=== PATIENT | male | born 1950 | race Caucasian/White ===

== ENCOUNTER 2017-02-09 11:32 | Emergency (ER) | payer OTHER ==
[~2017-02-09] VITALS: Ht 180.3 cm; Wt 94.1 kg
[~2017-02-09 11:32] MED LIST: ASCORBIC ACID500 M3 PO; ASPIR-LOW81 MG PO; ASPIRIN325 MG PO; BUSPAR5 MG PO; BUSPIRONE HCL10 MG PO; DEXTROSE 50%50 ML IV; DILANTIN100 MG PO; DUONEB 2.5-0.5 M3 ML AEROSOL; FOLIC ACID1 MG PO; FUROSEMIDE20 MG PO; GLUCAGEN1 MG IM/SC; HEPARIN SO5000 UNITS SC; LAMICTAL150 M1 PO; LAMOTRIGINE150 MG PO; LAMOTRIGINE200 MG PO; LEXAPRO20 MG PO; LORAZEPAM0.5 MG PO; LORAZEPAM2 MG/1 M1 IV; METHOTREXATE2.5 MG PO; METOPROLOL SUCC25 MG PO; NITROSTAT0.4 MG SL; NOVOLOG PE100 UNITS/ SC; ONDANSETRON4 MG/2 ML IV; PANTOPRAZOLE SO40 MG PO; PRAVASTATIN SOD40 MG PO; PREDNISONE20 MG PO; PREDNISONE5 MG PO; PROMETHAZINE HC25 M1 PO; PROTONIX40 MG PO; RESTASIS 01 DROP/0.4 BOTH EYES; SALINE FLUSH 5 M5 ML IV; SENNA-TIME S T1 EACH PO; SERTRALINE HCL100 MG PO; SERTRALINE HCL25 MG PO; SERTRALINE HCL50 MG PO; SIMVASTATIN20 MG PO; TAMSULOSIN HCL0.4 MG PO; VANCOMYCIN HCL1 GM IV; VITAMIN B-6100 MG PO; VITAMIN D250000 UNIT PO; ZOCOR20 MG PO; ZOLOFT100 MG PO; ZOLOFT50 MG PO; ZOSYN 3.373.375 GM/5 IV; ZOSYN 3.3753.375 GM IV
[2017-02-09 12:59] LABS: HEMATOCRIT 40.9 % (38.0-50.0); HEMOGLOBIN 14.1 G/DL (12.5-16.6); MCH 29.9 PG (29.0-34.0); MCHC 34.5 G/DL (30.0-36.0); MCV 86.7 FL (86-99); PLATELET COUNT 162 K/uL (156-360); RBC DIS.WIDTH-CV 12.8 % (11.8-14.6); RBC DIS.WIDTH-SD 40.4 % (39-53); RED BLOOD COUNT 4.72 M/uL (4.00-5.50); WHITE BLOOD COUNT 5.9 K/uL (4.1-10.2)
[2017-02-09 13:09] LABS: CHLORIDE 105 mEq/L (99-109); POTASSIUM 4.1 mEq/L (3.7-5.4); SODIUM 135 mEq/L (136-147)
[2017-02-09 13:11] LABS: GLUCOSE 88 mg/dL (70-99)
[2017-02-09 13:15] LABS: CREATININE 1.1 mg/dL (0.6-1.3); GFR ESTIMATE (CALCULATED) > 59 mL/min/ (58.99-99999)
[2017-02-09 13:16] LABS: UREA NITROGEN (BUN) 16 mg/dL (9-23)
[2017-02-09 14:51] LABS: APPEARANCE CLEAR ((CLEAR)); BILIRUBIN NEGATIVE; BLOOD NEGATIVE; COLOR YELLOW ((YELLOW)); GLUCOSE (STRIP) NEGATIVE; KETONES 5; LEUKOCYTES NEGATIVE; NITRITE NEGATIVE; PROTEIN (STRIP) NEGATIVE; SPECIFIC GRAVITY 1.019 (1.000-1.030); UCUL ADDED? NO
[2017-02-09] MEDS ORDERED: FLOMAX0.4 MG PO (16:15)
[2017-02-09 16:34] VITALS: BP 123/82
== END 2017-02-09 16:35 | disposition home or self-care (01) ==
LOC: EME 11:32
DX: R33.9 Retention of urine, unspecified (principal); I10 Essential (primary) hypertension; I25.2 Old myocardial infarction; F41.9 Anxiety disorder, unspecified; R56.9 Unspecified convulsions; M48.00 Spinal stenosis, site unspecified; Z87.891 Personal history of nicotine dependence
CPT/HCPCS: 71020; 80048; 81003; 85027; 93005; 99281; 99284

== ENCOUNTER 2017-06-10 19:36 | Inpatient (IN) | payer OTHER ==
[~2017-06-10] VITALS: Ht 180.3 cm; Wt 85.3 kg
[~2017-06-10 19:36] MED LIST changes: +FLOMAX0.4 MG PO
[2017-06-10 22:12] LABS: HEMATOCRIT 37.7 % (38.0-50.0); HEMOGLOBIN 13.2 G/DL (12.5-16.6); MCH 30.2 PG (29.0-34.0); MCV 86.3 FL (86-99); PLATELET COUNT 158 K/uL (156-360); RBC DIS.WIDTH-CV 12.5 % (11.8-14.6); RBC DIS.WIDTH-SD 39.2 % (39-53); RED BLOOD COUNT 4.37 M/uL (4.00-5.50); WHITE BLOOD COUNT 8.5 K/uL (4.1-10.2)
[2017-06-10] MEDS ORDERED: KEPPRA500 MG PO (22:15)
[2017-06-10] MEDS ORDERED: DIOVAN80 MG PO (22:16)
[2017-06-10] MEDS ORDERED: COREG6.25 M1 PO (22:18)
[2017-06-10] MEDS ORDERED: METAMUCIL0.4 GM PO ×2 (22:21→23:59)
[2017-06-10 22:25] LABS: ALBUMIN 4.1 g/dL (3.2-4.8); CHLORIDE 106 mEq/L (99-109); POTASSIUM 4.1 mEq/L (3.7-5.4); SODIUM 140 mEq/L (136-147)
[2017-06-10 22:27] LABS: GLUCOSE 94 mg/dL (70-99); TOTAL PROTEIN 6.8 g/dL (6.4-8.3)
[2017-06-10 22:29] LABS: TOTAL BILIRUBIN 0.5 mg/dL (0.0-1.0)
[2017-06-10 22:31] LABS: ALKALINE PHOSPHATASE 96 IU/L (3-129); CREATININE 1.1 mg/dL (0.6-1.3); GFR ESTIMATE (CALCULATED) > 59 mL/min/ (58.99-99999)
[2017-06-10 22:32] LABS: UREA NITROGEN (BUN) 25 mg/dL (9-23)
[2017-06-10 22:33] LABS: AST (GOT) 15 IU/L (2-34)
[2017-06-10 22:34] LABS: ALT (GPT) 12 IU/L (3-49)
[2017-06-10] MEDS ORDERED: LORAZEPAM1 MG PO (23:37)
[2017-06-10] MEDS ORDERED: ATIVAN1 MG PO ×2 (23:43→23:45)
[2017-06-10] MEDS ORDERED: ESCITALOPRAM OX20 MG PO (23:46)
[2017-06-10] MEDS ORDERED: LAMOTRIGINE150 MG PO (23:46)
[2017-06-10] MEDS ORDERED: NITROGLYCERIN0.4 MG SL (23:47)
[2017-06-10] MEDS ORDERED: VALSARTAN80 MG PO (23:48)
[2017-06-10] MEDS ORDERED: CARVEDILOL6.25 MG PO (23:50)
[2017-06-11] MEDS ORDERED: LO-DOSE ASPIRIN81 M2 PO (00:02)
[2017-06-11] MEDS ORDERED: RESTASIS MULTI5.5 ML BOTH EYES (00:05)
[2017-06-11 00:49] LABS: APPEARANCE CLEAR ((CLEAR)); BILIRUBIN NEGATIVE; BLOOD NEGATIVE; COLOR YELLOW ((YELLOW)); GLUCOSE (STRIP) NEGATIVE; KETONES 5; LEUKOCYTES NEGATIVE; NITRITE NEGATIVE; PROTEIN (STRIP) 30; UCUL ADDED? NO
[2017-06-11 01:08] VITALS: BP 119/70
[2017-06-11 04:33] VITALS: BP 147/75
[2017-06-11 08:26] VITALS: BP 142/80
[2017-06-11 11:56] VITALS: BP 156/86
[2017-06-11 15:39] VITALS: BP 119/61
[2017-06-11 23:39] VITALS: BP 150/77
[2017-06-12 06:33] LABS: HEMATOCRIT 37.7 % (38.0-50.0); HEMOGLOBIN 12.5 G/DL (12.5-16.6); MCH 29.2 PG (29.0-34.0); MCHC 33.2 G/DL (30.0-36.0); MCV 88.1 FL (86-99); PLATELET COUNT 149 K/uL (156-360); RBC DIS.WIDTH-CV 12.5 % (11.8-14.6); RED BLOOD COUNT 4.28 M/uL (4.00-5.50); WHITE BLOOD COUNT 6.9 K/uL (4.1-10.2)
[2017-06-12 07:09] LABS: CHLORIDE 104 MEQ/L (99-109); GFR ESTIMATE (CALCULATED) > 59 mL/min/ (58.99-99999); GLUCOSE 87 mg/dL (70-99); POTASSIUM 4.2 MEQ/L (3.7-5.4); SODIUM 139 MEQ/L (136-147); UREA NITROGEN (BUN) 24 mg/dL (9-23)
[2017-06-12 08:03] VITALS: BP 130/81
[2017-06-12 15:11] VITALS: BP 125/71
[2017-06-13 00:36] VITALS: BP 130/68
[2017-06-13 08:26] VITALS: BP 111/61
[2017-06-13 15:39] VITALS: BP 118/69
[2017-06-13 23:25] VITALS: BP 121/68
[2017-06-14 08:13] VITALS: BP 172/95
[2017-06-14 10:00] VITALS: BP 119/79
[2017-06-14 16:08] VITALS: BP 129/89
[2017-06-14 23:31] VITALS: BP 124/60
[2017-06-15 08:10] VITALS: BP 122/85
[2017-06-15 16:40] VITALS: BP 113/60
[2017-06-15 23:29] VITALS: BP 125/58
[2017-06-16 09:34] VITALS: BP 141/92
[2017-06-16 16:35] VITALS: BP 140/62
[2017-06-16 23:24] VITALS: BP 130/78
[2017-06-17 06:20] LABS: HEMATOCRIT 36.7 % (38.0-50.0); HEMOGLOBIN 12.5 G/DL (12.5-16.6); MCH 29.6 PG (29.0-34.0); MCHC 34.1 G/DL (30.0-36.0); MCV 86.8 FL (86-99); PLATELET COUNT 143 K/uL (156-360); RBC DIS.WIDTH-CV 12.1 % (11.8-14.6); RBC DIS.WIDTH-SD 38.5 % (39-53); RED BLOOD COUNT 4.23 M/uL (4.00-5.50); WHITE BLOOD COUNT 5.4 K/uL (4.1-10.2)
[2017-06-17 06:30] LABS: PTT 27.6 SEC (25-37)
[2017-06-17 06:47] LABS: ALBUMIN 3.8 G/DL (3.2-4.8); ALKALINE PHOSPHATASE 73 IU/L (3-129); ALT (GPT) 11 IU/L (3-49); AST (GOT) 15 IU/L (2-34); CHLORIDE 100 MEQ/L (99-109); CREATININE 1.1 MG/DL (0.6-1.3); GFR ESTIMATE (CALCULATED) > 59 mL/min/ (58.99-99999); GLUCOSE 98 mg/dL (70-99); POTASSIUM 4.5 MEQ/L (3.7-5.4); SODIUM 135 MEQ/L (136-147); TOTAL BILIRUBIN 0.5 MG/DL (0.0-1.0); TOTAL PROTEIN 6.3 G/DL (6.4-8.3); UREA NITROGEN (BUN) 28 mg/dL (9-23)
[2017-06-17 07:19] VITALS: BP 122/69
[2017-06-17 15:45] VITALS: BP 113/70
[2017-06-17 23:11] VITALS: BP 133/59
[2017-06-18 08:24] VITALS: BP 142/87
[2017-06-18 15:55] VITALS: BP 105/52
[2017-06-18 23:47] VITALS: BP 136/64
[2017-06-19 07:11] VITALS: BP 129/60
[2017-06-19 15:47] VITALS: BP 129/64
[2017-06-20 00:18] VITALS: BP 151/75
[2017-06-20 08:33] VITALS: BP 113/66
[2017-06-20 20:54] VITALS: BP 156/80
[2017-06-21 00:30] VITALS: BP 129/77
[2017-06-21 04:07] VITALS: BP 127/80
[2017-06-21 08:27] VITALS: BP 172/69
[2017-06-21 16:10] VITALS: BP 146/80
[2017-06-22 00:08] VITALS: BP 113/58
[2017-06-22 07:31] VITALS: BP 129/61
[2017-06-22] MEDS ORDERED: SENNA PLUS TAB1 EACH PO (13:26)
[2017-06-22] MEDS ORDERED: BISAC-EVAC10 MG PR (13:26)
[2017-06-22] MEDS ORDERED: POLYETHYLENE GL17 GM PO (13:26)
[2017-06-22] MEDS ORDERED: Milk Of Magnesia,MOM PO (13:26)
[2017-06-22] MEDS ORDERED: TYLENOL REGULA325 MG PO (13:27)
[2017-06-22 16:13] VITALS: BP 138/70
[2017-06-22 23:24] VITALS: BP 117/66
[2017-06-23 07:23] VITALS: BP 119/66
[2017-06-23] MEDS ORDERED: HYDROXYZINE PAM25 MG PO (12:47)
[2017-06-23] MEDS ORDERED: OXYCODONE HCL5 MG PO (12:48)
[2017-06-23] MEDS ORDERED: ENDOCET 5-3251 EACH PO (12:48)
[2017-06-23] MEDS ORDERED: ZOLPIDEM TARTRAT5 MG PO (12:48)
== END 2017-06-23 14:18 | DRG 511 ==
LOC: EME 19:36 → 3EAST 23:25 → EDOF 23:25 → ENRESERV 23:29 → 3EAST 06-11 00:58 → ENRESERV 06-16 14:24 → 3EAST 06-16 14:25
PROVIDERS: Emergency Medicine; Hospitalist; Internal Medicine
DX: S52.571A Other intraarticular fracture of lower end of right radius, initial encounter for closed fracture (principal); S52.572A Other intraarticular fracture of lower end of left radius, initial encounter for closed fracture; W01.0XXA Fall on same level from slipping, tripping and stumbling without subsequent striking against object, initial encounter; I11.0 Hypertensive heart disease with heart failure; I50.9 Heart failure, unspecified; I25.10 Atherosclerotic heart disease of native coronary artery without angina pectoris; G40.909 Epilepsy, unspecified, not intractable, without status epilepticus; I25.2 Old myocardial infarction; E78.5 Hyperlipidemia, unspecified; K59.00 Constipation, unspecified; T40.2X5A Adverse effect of other opioids, initial encounter; M06.9 Rheumatoid arthritis, unspecified; M48.00 Spinal stenosis, site unspecified; R29.6 Repeated falls; R26.81 Unsteadiness on feet; R33.9 Retention of urine, unspecified; R53.1 Weakness; F03.90 Unspecified dementia, unspecified severity, without behavioral disturbance, psychotic disturbance, mood disturbance, and anxiety; F32.9 Major depressive disorder, single episode, unspecified; F41.9 Anxiety disorder, unspecified; Z91.81 History of falling; Z75.1 Person awaiting admission to adequate facility elsewhere; Z87.891 Personal history of nicotine dependence
CPT/HCPCS: 71045; 73100; 76000; 80048; 80053; 81003; 85027; 85610; 85730; 93005; 97530 GO; 97530 GP; 99281; 99285; C1713; G0378; G8978 CL; G8979 CJ; G8987 GO CM; G8988 GO CL; J0131; J0690; J1100; J1170; J1650; J1885; J2250; J2405; J2710; J3010; J7120; J7643

== ENCOUNTER 2017-07-23 20:53 | Emergency (ER) | payer OTHER ==
[~2017-07-23] VITALS: Ht 180.3 cm; Wt 86.4 kg
[~2017-07-23 20:53] MED LIST changes: +ATIVAN1 MG PO; +BISAC-EVAC10 MG PR; +CARVEDILOL6.25 MG PO; +COREG6.25 M1 PO; +DIOVAN80 MG PO; +ENDOCET 5-3251 EACH PO; +ESCITALOPRAM OX20 MG PO; +HYDROXYZINE PAM25 MG PO; +KEPPRA500 MG PO; +LO-DOSE ASPIRIN81 M2 PO; +LORAZEPAM1 MG PO; +METAMUCIL0.4 GM PO; +Milk Of Magnesia,MOM PO; +NITROGLYCERIN0.4 MG SL; +OXYCODONE HCL5 MG PO; +POLYETHYLENE GL17 GM PO; +RESTASIS MULTI5.5 ML BOTH EYES; +SENNA PLUS TAB1 EACH PO; +TYLENOL REGULA325 MG PO; +VALSARTAN80 MG PO; +ZOLPIDEM TARTRAT5 MG PO
[2017-07-23 21:33] LABS: HEMATOCRIT 35.3 % (38.0-50.0); HEMOGLOBIN 11.9 G/DL (12.5-16.6); MCH 29.4 PG (29.0-34.0); MCHC 33.7 G/DL (30.0-36.0); MCV 87.2 FL (86-99); PLATELET COUNT 173 K/uL (156-360); RBC DIS.WIDTH-CV 12.9 % (11.8-14.6); RBC DIS.WIDTH-SD 40.9 % (39-53); RED BLOOD COUNT 4.05 M/uL (4.00-5.50); WHITE BLOOD COUNT 4.3 K/uL (4.1-10.2)
[2017-07-23 21:50] LABS: ALBUMIN 3.8 g/dL (3.2-4.8); CHLORIDE 107 mEq/L (99-109); POTASSIUM 4.3 mEq/L (3.7-5.4); SODIUM 140 mEq/L (136-147)
[2017-07-23 21:53] LABS: GLUCOSE 90 mg/dL (70-99); TOTAL PROTEIN 6.9 g/dL (6.4-8.3)
[2017-07-23 21:54] LABS: TOTAL BILIRUBIN 0.3 mg/dL (0.0-1.0)
[2017-07-23 21:56] LABS: ALKALINE PHOSPHATASE 97 IU/L (3-129); CREATININE 1.2 mg/dL (0.6-1.3); GFR ESTIMATE (CALCULATED) > 59 mL/min/ (58.99-99999)
[2017-07-23 21:57] LABS: UREA NITROGEN (BUN) 21 mg/dL (9-23)
[2017-07-23 21:58] LABS: AST (GOT) 16 IU/L (2-34)
[2017-07-23 21:59] LABS: ALT (GPT) 12 IU/L (3-49)
[2017-07-23 22:42] LABS: DIRECT BILIRUBIN 0.2 mg/dL (0.0-0.3)
[2017-07-23 22:47] LABS: LIPASE 33 U/L (1.0-51.0)
[2017-07-24 01:20] LABS: APPEARANCE CLEAR ((CLEAR)); BILIRUBIN NEGATIVE; BLOOD NEGATIVE; COLOR YELLOW ((YELLOW)); GLUCOSE (STRIP) NEGATIVE; KETONES 5; LEUKOCYTES NEGATIVE; NITRITE NEGATIVE; PROTEIN (STRIP) 30; SPECIFIC GRAVITY 1.055 (1.000-1.030); UCUL ADDED? NO; UROBILINOGEN 0.2 MG/DL (0.2-1.0)
[2017-07-24 01:34] VITALS: BP 113/79
== END 2017-07-24 01:36 | disposition home or self-care (01) ==
LOC: EME 20:53
DX: E86.0 Dehydration (principal); R10.11 Right upper quadrant pain; N28.1 Cyst of kidney, acquired; M51.36 Other intervertebral disc degeneration, lumbar region; I10 Essential (primary) hypertension; I25.2 Old myocardial infarction; Z79.82 Long term (current) use of aspirin; Z87.891 Personal history of nicotine dependence
CPT/HCPCS: 74177; 80053; 81003; 82248; 83605; 83690; 85027; 99281; 99285; J7030

== ENCOUNTER 2017-07-28 08:55 | Inpatient (IN) | payer OTHER ==
[~2017-07-28] VITALS: Ht 180.3 cm; Wt 89.3 kg
[2017-07-28 10:05] LABS: HEMATOCRIT 33.7 % (38.0-50.0); HEMOGLOBIN 11.5 G/DL (12.5-16.6); MCH 29.6 PG (29.0-34.0); MCHC 34.1 G/DL (30.0-36.0); MCV 86.9 FL (86-99); PLATELET COUNT 158 K/uL (156-360); RBC DIS.WIDTH-CV 13.1 % (11.8-14.6); RED BLOOD COUNT 3.88 M/uL (4.00-5.50); WHITE BLOOD COUNT 4.7 K/uL (4.1-10.2)
[2017-07-28 10:13] LABS: ALBUMIN 3.6 g/dL (3.2-4.8)
[2017-07-28 10:14] LABS: CHLORIDE 105 mEq/L (99-109); POTASSIUM 4.1 mEq/L (3.7-5.4); SODIUM 138 mEq/L (136-147)
[2017-07-28 10:16] LABS: GLUCOSE 108 mg/dL (70-99); TOTAL PROTEIN 6.3 g/dL (6.4-8.3)
[2017-07-28 10:18] LABS: TOTAL BILIRUBIN 0.3 mg/dL (0.0-1.0)
[2017-07-28 10:19] LABS: ALKALINE PHOSPHATASE 88 IU/L (3-129)
[2017-07-28 10:20] LABS: GFR ESTIMATE (CALCULATED) > 59 mL/min/ (58.99-99999)
[2017-07-28 10:21] LABS: AST (GOT) 12 IU/L (2-34); UREA NITROGEN (BUN) 16 mg/dL (9-23)
[2017-07-28 10:22] LABS: ALT (GPT) 11 IU/L (3-49)
[2017-07-28 10:25] LABS: TROP-I INTERPRETATION NEGATIVE; TROPONIN-I 0.01 ng/mL (0.0-0.30)
[2017-07-28] MEDS ORDERED: MIRALAX17 GM PO (11:55)
[2017-07-28] MEDS ORDERED: SENNA PLUS TAB1 EACH PO (11:56)
[2017-07-28] MEDS ORDERED: FLOMAX0.4 MG PO (11:58)
[2017-07-28 18:14] LABS: TROP-I INTERPRETATION NEGATIVE; TROPONIN-I 0.02 ng/mL (0.0-0.30)
[2017-07-28 20:00] VITALS: BP 121/72
[2017-07-28 23:55] VITALS: BP 120/71
[2017-07-29 00:59] LABS: TROP-I INTERPRETATION NEGATIVE; TROPONIN-I < 0.01 ng/mL (0.0-0.30)
[2017-07-29 04:00] VITALS: BP 105/65
[2017-07-29 05:36] LABS: BASOPHIL (%) 0.2 % (0-1); EOSINOPHIL (%) 1.5 % (0-5); EOSINOPHIL COUNT 0.1 K/uL (0-0.3); HEMATOCRIT 34.8 % (38.0-50.0); HEMOGLOBIN 11.3 G/DL (12.5-16.6); IMMATURE GRANULOCYTE (%) 0.2 % (0.0-0.7); LYMPHOCYTE (%) 13.1 % (15-42); LYMPHOCYTE COUNT 0.6 K/uL (1.0-2.8); MCH 28.6 PG (29.0-34.0); MCHC 32.5 G/DL (30.0-36.0); MCV 88.1 FL (86-99); MONOCYTE (%) 8.7 % (3-12); MONOCYTE COUNT 0.4 K/uL (0-0.8); NEUTROPHIL (%) 76.3 % (45-76); NEUTROPHIL COUNT 3.6 K/uL (1.8-6.4); PLATELET COUNT 157 K/uL (156-360); RBC DIS.WIDTH-CV 13.2 % (11.8-14.6); RBC DIS.WIDTH-SD 42.7 % (39-53); RED BLOOD COUNT 3.95 M/uL (4.00-5.50); WHITE BLOOD COUNT 4.7 K/uL (4.1-10.2)
[2017-07-29 06:04] LABS: ALBUMIN 3.5 G/DL (3.2-4.8); ALKALINE PHOSPHATASE 75 IU/L (3-129); ALT (GPT) 9 IU/L (3-49); AST (GOT) 13 IU/L (2-34); CHLORIDE 107 MEQ/L (99-109); CREATININE 1.1 MG/DL (0.6-1.3); DIRECT BILIRUBIN 0.1 mg/dL (0.0-0.3); GFR ESTIMATE (CALCULATED) > 59 mL/min/ (58.99-99999); GLUCOSE 84 mg/dL (70-99); SODIUM 138 MEQ/L (136-147); TOTAL BILIRUBIN 0.4 MG/DL (0.0-1.0); TOTAL PROTEIN 5.7 G/DL (6.4-8.3); UREA NITROGEN (BUN) 11 mg/dL (9-23)
[2017-07-29 07:45] VITALS: BP 110/53
[2017-07-29 12:03] VITALS: BP 117/74
[2017-07-29 19:25] VITALS: BP 114/57
[2017-07-30 08:31] VITALS: BP 107/68
[2017-07-30 13:38] VITALS: BP 138/79
[2017-07-30 16:10] VITALS: BP 116/81
[2017-07-30 20:54] VITALS: BP 123/75
[2017-07-30 23:25] VITALS: BP 120/70
[2017-07-31 07:58] VITALS: BP 119/74
[2017-07-31 16:14] VITALS: BP 131/79
[2017-07-31 19:15] VITALS: BP 118/63
[2017-08-01 04:19] VITALS: BP 132/67
[2017-08-01 07:20] VITALS: BP 112/80
[2017-08-01] MEDS ORDERED: LORAZEPAM1 MG PO (10:42)
[2017-08-01] MEDS ORDERED: LORAZEPAM0.5 MG PO (10:42)
[2017-08-01] MEDS ORDERED: QUETIAPINE FUMA25 MG PO (10:42)
[2017-08-01 11:46] VITALS: BP 113/80
== END 2017-08-01 12:20 | disposition home or self-care (01) | DRG 312 ==
LOC: EME 08:55 → 4SOUTH 11:41 → EDOF 11:41 → ENRESERV 11:49 → 4SOUTH 14:29
PROVIDERS: Emergency Medicine; Internal Medicine
DX: R55 Syncope and collapse (principal); F32.9 Major depressive disorder, single episode, unspecified; F41.9 Anxiety disorder, unspecified; I10 Essential (primary) hypertension; F01.51 Vascular dementia, unspecified severity, with behavioral disturbance; E78.5 Hyperlipidemia, unspecified; G40.909 Epilepsy, unspecified, not intractable, without status epilepticus; I25.10 Atherosclerotic heart disease of native coronary artery without angina pectoris; M06.9 Rheumatoid arthritis, unspecified; Z66 Do not resuscitate; N40.0 Benign prostatic hyperplasia without lower urinary tract symptoms; R29.6 Repeated falls; W19.XXXD Unspecified fall, subsequent encounter; S52.502G Unspecified fracture of the lower end of left radius, subsequent encounter for closed fracture with delayed healing; S52.501G Unspecified fracture of the lower end of right radius, subsequent encounter for closed fracture with delayed healing; Z91.81 History of falling; Z90.81 Acquired absence of spleen
CPT/HCPCS: 71046; 80048; 80053; 80076; 84484; 85025; 85027; 93005; 99281; 99285; J1650; J7030; S0028